=== PATIENT | female | born 1975 ===

== ENCOUNTER 2016-06-26 19:16 | Emergency (ER) | payer MEDICAID ==
[2016-06-26 19:36] VITALS: BP 106/73; TEMP 98.1
--- NOTE | 2016-06-26 20:09 | C.PDOC ---
History Of Present Illness 41 y/o female complaining of ringing in the left ear over the last few months, that subsided, and the returned over the last few days. Also complains of intermittent feelings of spinning sensation especially with head movements. No dizziness now, ear pain, URI complaints, weakness. No other complaints at this time. Time Seen by Provider: 06/26/16 19:58 Chief Complaint (Nursing): ENT Problem History Per: Patient History/Exam Limitations: no limitations Onset/Duration Of Symptoms: Days (3) Current Symptoms Are (Timing): Worse Severity: Mild Recent travel outside of the [place]: No Additional History Per: Patient Past Medical History Reviewed: Historical Data, Nursing Documentation, Vital Signs Vital Signs: Last Vital Signs Temp 98.1 F 06/26/16 19:34 Pulse 82 06/26/16 20:20 Resp 18 06/26/16 20:20 BP 106/73 06/26/16 19:34 Pulse Ox 100 06/27/16 01:18 - Medical History PMH: No Chronic Diseases Surgical History: Cholecystectomy Family History: States: Unknown Family Hx - Social History Hx Tobacco Use: No Hx Alcohol Use: No Hx Substance Use: No - Immunization History Hx Tetanus Toxoid Vaccination: Yes Hx Influenza Vaccination: Yes Hx Pneumococcal Vaccination: No Review Of Systems Except As Marked, All Systems Reviewed And Found Negative. ENT: Positive for: Other (tinnitus). Negative for: Ear Pain Neurological: Positive for: Dizziness. Negative for: Weakness, Numbness, Incoordination, Change in Speech, Confusion, Seizures, Altered Mental Status, Headache Physical Exam - Physical Exam Appears: Well, No Acute Distress Skin: Normal Color, Warm, Dry Eye(s): bilateral: Normal Inspection, PERRL, EOMI Nose: Normal Oral Mucosa: Moist Tongue: Normal Appearing Throat: Normal Neck: Normal Cardiovascular: Rhythm Regular Respiratory: Rhonchi, Wheezing (expiratory, mild) Extremity: Normal ROM Extremity: Bilateral: Atraumatic, Normal Color And Temperature Neurological/Psych: Oriented x3, Normal Speech, Normal Cognition, Normal Cranial Nerves, Normal Motor, Normal Sensation, Normal Reflexes, Other ( reproducable dizziness with head movement) Gait: Steady ED Course And Treatment O2 Sat by Pulse Oximetry: 100 (RA) Pulse Ox Interpretation: Normal Medical Decision Making Medical Decision Making: Initial Impression: Tinnitus v. Meniere's Disease Patient evaluated and has reproducible dizziness with head turning. She was given Meclizine in the department as well as a prescription for home. Medication instructions given. Patient to follow up with her PMD for further evaluation over the next few days. She was discharged in stable condition. Disposition Counseled Patient/Family Regarding: Diagnosis, Need For Followup, Rx Given - Disposition Referrals: James Oden MD [Staff Provider] - Disposition: HOME/ ROUTINE Disposition Time: 20:16 Condition: STABLE Additional Instructions: Please follow up with PMD and ENT Take meds as directed Return to ER if worse Prescriptions: Meclizine HCl 25 mg PO TID PRN #20 tablet PRN Reason: Dizziness Instructions: Vertigo (ED), Tinnitus (ED) - Clinical Impression Clinical Impression: Tinnitus, Vertigo - Scribe Statement The provider has reviewed the documentation as recorded by the Scribe Shameka Main
[2016-06-26 20:20] VITALS: PULSE 82; RESP 18
[2016-06-26 20:23] VITALS: O2SAT 100
== END 2016-06-26 20:25 | disposition home or self-care (01) ==
LOC: C.ER 19:16
DX: H93.12 Tinnitus, left ear (principal); R42 Dizziness and giddiness

== ENCOUNTER 2016-09-25 18:32 | Emergency (ER) | payer MEDICAID ==
[2016-09-25 18:51] VITALS: RESP 16; TEMP 98.4
--- NOTE | 2016-09-25 20:59 | CT ---
EXAM: CT Head Without Intravenous Contrast CLINICAL HISTORY: 41 years old, female; Signs and symptoms; Dizziness; Additional info: Headache, dizziness TECHNIQUE: Axial computed tomography images of the head/brain without intravenous contrast. This CT exam was performed using one or more of the following dose reduction techniques: automated exposure control, adjustment of the mA and/or kV according to patient size, and/or use of iterative reconstruction technique. EXAM DATE/TIME: 09/25/2016 7:35 PM COMPARISON: There are no prior studies for comparison. FINDINGS: Brain: Ventricles are normal in size and configuration. There is no midline shift. There are no intra-axial or extra-axial mass lesions or areas of hemorrhage. There are no abnormal fluid collections. [place]-white differentiation is maintained. Ventricles: See above. Bones: Cranial vault is intact. Soft tissues: unremarkable Sinuses: There is no acute sinusitis. Ears and mastoids: Middle ears and mastoids are unremarkable Orbits: Orbital contents are unremarkable. IMPRESSION: No acute intracranial abnormality
--- NOTE | 2016-09-25 21:02 | C.PDOC ---
History Of Present Illness A 41 y/o F c/o right sided headache that began this morning. States she had generalized headache earlier this morning after waking up, but now the pain is more localized to the right auricular area. Reports intermittently feeling tired and dizzy. Denies ear ache, photophobia, fever, URI symptoms, recent travel, sick contact, or any other complaints. Notes having a hx of headache that is relieved with Motrin, but ran out of Motrin and notes her headache feels different. Time Seen by Provider: 09/25/16 19:18 Chief Complaint (Nursing): Headache History Per: Patient History/Exam Limitations: no limitations Onset/Duration Of Symptoms: Hrs, Intermittent Episodes (Tiredness and dizziness) Current Symptoms Are (Timing): Still Present Severity: Mild Associated Symptoms: denies: Photophobia, Blurred Vision, Vomiting Recent travel outside of the [place]: No Additional History Per: Patient Past Medical History Reviewed: Historical Data, Nursing Documentation, Vital Signs Vital Signs: Last Vital Signs Temp 98.4 F 09/25/16 18:47 Pulse 78 09/25/16 21:58 Resp 16 09/25/16 21:58 BP 129/86 09/25/16 21:58 Pulse Ox 97 09/25/16 21:58 Surgical History: Cholecystectomy Family History: States: Unknown Family Hx - Social History Hx Tobacco Use: No Hx Alcohol Use: No Hx Substance Use: No - Immunization History Hx Tetanus Toxoid Vaccination: Yes Hx Influenza Vaccination: Yes Hx Pneumococcal Vaccination: No Review Of Systems Except As Marked, All Systems Reviewed And Found Negative. Constitutional: Positive for: Other (Intermittent tiredness). Negative for: Fever, Chills Eyes: Negative for: Other (Photophobia) ENT: Negative for: Ear Pain, Nose Congestion, Throat Pain Respiratory: Negative for: Cough Neurological: Positive for: Headache, Dizziness (Intermittent) Physical Exam - Physical Exam Appears: Non-toxic, No Acute Distress Skin: Warm, Dry Head: Atraumatic, Normacephalic Ear(s): Bilateral: Normal Oral Mucosa: Moist Throat: Normal, No Erythema, No Exudate, No Mass Neck: Supple Neurological/Psych: Oriented x3, Normal Speech, Normal Cognition, Normal Cranial Nerves, Other (No focal deficit) ED Course And Treatment O2 Sat by Pulse Oximetry: 98 (RA) Pulse Ox Interpretation: Normal - CT Scan/US Heead CT Other Rad Studies (CT/US): Interpreted By Me, Read By Radiologist CT/US Interpretation: No acute findings as interpreted by radiologist Progress Note: Impression: A 41 y/o F c/o right sided headache that began this morning. Plans: CT Head w/o, Motrin. Patient is in no acute distress at this time and is improving with the headache. Patient currently is afebrile and denies ear pain, photophobia, and URI symptoms. Patient advised to follow up with PMD within 1-2 days for further evaluation and to return to the ER if symptoms worsens. Disposition Counseled Patient/Family Regarding: Diagnosis, Need For Followup, Rx Given - Disposition Referrals: Kelsi Guerra [Staff Provider] - Disposition: HOME/ ROUTINE Disposition Time: 21:43 Condition: STABLE Additional Instructions: Please follow up with PMD Take motrin PO Increase PO fluids Return to ER if severe headache, dizziness, neck pain, fever or worse Prescriptions: Ibuprofen [Motrin] 600 mg PO Q6H #30 tab Instructions: Acute Headache (ED) Forms: [employer] (Kinyarwanda) Print Language: [place] - Clinical Impression Clinical Impression: Headache - Scribe Statement The provider has reviewed the documentation as recorded by the Scribe Marsha alfred All medical record entries made by the Eraibadalberto were at my direction and personally dictated by me. I have reviewed the chart and agree that the record accurately reflects my personal performance of the history, physical exam, medical decision making, and the department course for this patient. I have also personally directed, reviewed, and agree with the discharge instructions and disposition.
[2016-09-25 21:58] VITALS: BP 129/86; PULSE 78
[2016-09-26 03:19] VITALS: O2SAT 98
== END 2016-09-25 21:58 | disposition home or self-care (01) ==
LOC: C.ER 18:32
DX: R51 Headache (principal)

== ENCOUNTER 2017-05-25 16:48 | Emergency (ER) | payer MEDICAID ==
[2017-05-25 16:54] VITALS: TEMP 99.9; O2SAT 99
[2017-05-25] MEDS ORDERED: DiphenhydrAMINE 50 mg/ml Inj IM STA (17:10)
[2017-05-25] MEDS ORDERED: DiphenhydrAMINE 50 mg/ml Inj ONE (17:18)
[2017-05-25 17:31] VITALS: RESP 16
--- NOTE | 2017-05-25 18:29 | C.PDOC ---
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 denies: Dyspnea, Trouble Swallowing Home/EMS Treatment: Other (Claritin) Severity: Moderate Additional History Per: Prior Records Past Medical History Reviewed: Historical Data, Nursing Documentation, Vital Signs Vital Signs: Last Vital Signs Temp 99.9 F H 05/25/17 16:52 Pulse 93 H 05/25/17 17:29 Resp 16 05/25/17 17:29 BP 119/81 05/25/17 16:52 Pulse Ox 99 05/25/17 18:30 - Medical History Other PMH: Retinopathy Surgical History: Cholecystectomy Family History: States: Unknown Family Hx - Social History Hx Tobacco Use: No Hx Alcohol Use: No Hx Substance Use: No - Immunization History Hx Tetanus Toxoid Vaccination: Yes Hx Influenza Vaccination: Yes Hx Pneumococcal Vaccination: No Review Of Systems Except As Marked, All Systems Reviewed And Found Negative. Constitutional: Negative for: Fever Eyes: Negative for: Conjunctivae Inflammation, Eyelid Inflammation, Redness ENT: Negative for: Mouth Pain, Mouth Swelling, Throat Pain, Throat Swelling Respiratory: Negative for: Cough, Shortness of Breath, Wheezing Gastrointestinal: Negative for: Vomiting, Diarrhea Skin: Positive for: Rash Neurological: Negative for: Weakness, Numbness Physical Exam - Physical Exam Appears: Non-toxic, No Acute Distress Skin: Warm, Dry, Rash (Urticaria on face and upper extretmies) Head: Atraumatic Eye(s): bilateral: Normal Inspection, PERRL, EOMI Oral Mucosa: Moist, No Drooling, No Trismus Tongue: Normal Appearing Lips: Normal Appearing Throat: Normal Neck: Normal ROM, Supple Cardiovascular: Rhythm Regular Respiratory: Normal Breath Sounds, No Accessory Muscle Use, No Stridor, No Wheezing Gastrointestinal/Abdominal: Soft, No Tenderness Extremity: Normal ROM, No Pedal Edema Neurological/Psych: Oriented x3, Normal Speech, Normal Motor, Normal Sensation ED Course And Treatment O2 Sat by Pulse Oximetry: 99 Pulse Ox Interpretation: Normal Progress - Interventions Interventions:: Observation - Medications Administered Oral: H-2 edilma Intravenous: Antihistamine (H-1) (IM) - Data Reviewed Data Reviewed: Old records - Patient Status Patient status: Mostly improved - Continuity of Care Discussed patient case with:: Patient, Family-HIPPA compliant, ED Nurse - Patient Plan Patient Plan: Discharge, F/U with PCP Disposition Counseled Patient/Family Regarding: Studies Performed, Diagnosis, Need For Followup, Rx Given - Disposition Referrals: Kelsi Guerra [Staff Provider] - Disposition: HOME/ ROUTINE Disposition Time: 18:38 Condition: IMPROVED Additional Instructions: Follow up with your doctor for further evaluation and treatment. Avoid all seafood until you see an acute care clinical nurse specialist. Return to the ER if you develop trouble breathing, throat swelling, worsening of symptoms or if you have any other concerns. Prescriptions: DiphenhydrAMINE [Benadryl] 25 mg PO Q4 PRN #30 cap PRN Reason: Allergy Symptoms Instructions: Food Allergy (ED) Forms: [employer] (Khmer) Print Language: SINGAPOREAN - Clinical Impression Clinical Impression: Allergic reaction to food
[2017-05-25 19:00] VITALS: BP 92/53; PULSE 80
== END 2017-05-25 19:17 | disposition home or self-care (01) ==
LOC: C.ER 16:48
DX: T78.1XXA Other adverse food reactions, not elsewhere classified, initial encounter (principal); X58.XXXA Exposure to other specified factors, initial encounter
CPT/HCPCS: 96372; 99284; J1200

== ENCOUNTER 2017-06-21 21:05 | Emergency (ER) | payer MEDICAID ==
[2017-06-21 21:37] LABS: EOS # 0.1 K/uL (0.0-0.7); MEAN PLATELET VOLUME 7.6 fL (7.2-11.7); MONO # 0.6 K/uL (0.0-0.8)
[2017-06-21 21:42] LABS: BASO % 0.2 % (0.0-2.0); EOS % 0.9 % (0.0-4.0); HEMOGLOBIN 13.4 g/dL (11.0-16.0); LYMPH # 2.6 K/uL (1.0-4.3); LYMPH % 33.5 % (20.0-40.0); MEAN CELL VOLUME 86.8 fL (81.0-99.0); MEAN CORPUSCULAR HGB CONC 34.6 g/dL (33.0-37.0); MONO % 7.7 % (0.0-10.0); NEUT # 4.5 K/uL (1.8-7.0); NEUT % 57.7 % (50.0-75.0); RBC 4.47 Mil/uL (3.80-5.20); RED CELL DISTRIBUTION WIDTH 14.7 % (11.5-14.5); WHITE BLOOD COUNT 7.8 K/uL (4.8-10.8)
[2017-06-21 21:50] LABS: ALB/GLOB RATIO 1.3 (1.0-2.1); ALBUMIN 4.1 g/dL (3.5-5.0); ALT/SGPT 31 U/L (9-52); AST/SGOT 22 U/L (14-36); BLOOD UREA NITROGEN 12 mg/dL (7-17); CALCIUM 8.2 mg/dl (8.6-10.4); GFR AFRICAN-AMERICAN > 60; GFR NON-AFRICAN AMERICAN > 60
[2017-06-21 22:19] LABS: HCG,QUALITATIVE URINE NEGATIVE (NEGATIVE)
[2017-06-21 22:20] LABS: SQUAMOUS EPITHIAL < 1 /hpf (0-5); URINE BACTERIA FEW (<OCC); URINE BILIRUBIN NEGATIVE (NEGATIVE); URINE BLOOD 3+ (NEGATIVE); URINE CALCIUM OXALATE CRYSTALS FEW /hpf (<OCC); URINE CLARITY SL. HAZY (Clear); URINE COLOR Yellow (YELLOW); URINE GLUCOSE (UA) NORMAL (Normal); URINE LEUKOCYTE ESTERASE NEG Leu/uL (Negative); URINE PROTEIN NEGATIVE (NEGATIVE); URINE UROBILINOGEN NORMAL mg/dL (0.2-1.0)
[2017-06-21] MEDS ORDERED: Magnesium Citrate Oral SOL (300 ml) PO ONE (22:27)
--- NOTE | 2017-06-21 22:29 | C.PDOC ---
History Of Present Illness 42 y/o female presents to the ED with abdominal pain. Patient is complaining of abdominal cramping since 2:00 PM today after eating a meal consisting of pork and rice. She states the pain was gradual. Denies fever or chills. PMD: Mari Johnson Time Seen by Provider: 06/21/17 21:47 Chief Complaint (Nursing): Abdominal Pain History Per: Patient History/Exam Limitations: no limitations Onset/Duration Of Symptoms: Hrs (2:00 pm today) Current Symptoms Are (Timing): Still Present Associated Symptoms: denies: Fever, Chills Recent travel outside of the [place]: No Past Medical History Vital Signs: Last Vital Signs Temp 99.7 F H 06/21/17 21:09 Pulse 71 06/21/17 21:09 Resp 16 06/21/17 21:09 BP 120/72 06/21/17 21:09 Pulse Ox 100 06/21/17 23:02 - Medical History PMH: No Chronic Diseases Surgical History: Cholecystectomy Other Surgeries: Tubal ligation Family History: States: Unknown Family Hx - Social History Hx Tobacco Use: No Hx Alcohol Use: No Hx Substance Use: No - Immunization History Hx Tetanus Toxoid Vaccination: Yes Hx Influenza Vaccination: Yes Hx Pneumococcal Vaccination: No Review Of Systems Except As Marked, All Systems Reviewed And Found Negative. Constitutional: Negative for: Fever, Chills Gastrointestinal: Positive for: Abdominal Pain Physical Exam - Physical Exam Appears: In Acute Distress, Other (intermittent pain and sleep) Skin: Normal Color, Warm, Dry Head: Atraumatic, Normacephalic Eye(s): bilateral: Normal Inspection, PERRL, EOMI Nose: Normal Throat: Normal Neck: Normal Cardiovascular: Rhythm Regular Respiratory: Normal Breath Sounds Gastrointestinal/Abdominal: No Normal Exam (negative Schmitt's sign and McBurney' s point tenderness), Other (dull to progression in the right and left abdomen) Back: Normal Inspection, No CVA Tenderness, No Vertebral Tenderness Extremity: Normal ROM, No Pedal Edema Neurological/Psych: Oriented x3 ED Course And Treatment - Laboratory Results Result Diagrams: 06/21/17 21:34 06/21/17 21:34 Lab Interpretation: Normal (UA wnl (small blood from MP)) Urine POC: Negative O2 Sat by Pulse Oximetry: 100 (RA) Pulse Ox Interpretation: Normal - Radiology CXR: Interpreted by Me CXR Interpretation: Yes: No Acute Disease - Other Rad abd x 2 X-Ray: Interpreted by Me (+FOS, no obst) Reevaluation Time: 22:28 Reassessment Condition: Improved (pain free and sleep without any pain meds. ambulated to radiology without pain) Medical Decision Making Medical Decision Making: acute on chronic constip Disposition Doctor Will See Patient In The: Office Counseled Patient/Family Regarding: Studies Performed, Diagnosis - Disposition Referrals: Iain Guerra MD [Staff Provider] - Disposition: HOME/ ROUTINE Disposition Time: 23:02 Condition: GOOD Additional Instructions: mason un purgante (Citrato de Magnesio) ahora, y re-evalua méndez molestia del abdomen despues de usar el cyrus 2-3 veces Repita deana necessario Cambios de dieta y ejercisio Come 7 verduras y frutas crudas diarios mason mas agua camina 45 min x 5 taylor por semana- se aumenta la motilidad de los intestinos. Repita un purgante si las sintoma se re-occuran. Sigue con méndez Medico deana necessario. Instructions: Constipation, Adult (DC) Forms: [employer] (Citizen Of [place]) Print Language: CITIZEN OF [place] - Clinical Impression Clinical Impression: Colicky LLQ abdominal pain
[2017-06-21 22:33] LABS: BARBITURATES, UR NEGATIVE (NEGATIVE); BENZODIAZEPINES, UR NEGATIVE (NEGATIVE); OPIATES, UR NEGATIVE (NEGATIVE); PHENCYCLIDINE, UR NEGATIVE (NEGATIVE)
[2017-06-21] MEDS ORDERED: Magnesium Citrate Oral SOL (300 ml) ONE (22:33)
[2017-06-21 23:24] VITALS: BP 102/72; PULSE 76; RESP 18; TEMP 99.5
[2017-06-21 23:25] VITALS: O2SAT 100
--- NOTE | 2017-06-22 09:12 | RAD ---
PROCEDURE: Radiographs of the chest and abdomen (obstructive series) HISTORY: abd colic COMPARISON: No prior. TECHNIQUE: AP radiograph of the chest, with upright and supine radiographs of the abdomen. FINDINGS: CHEST: Lungs: Clear. Cardiovascular: Normal size heart. No pulmonary vascular congestion. Pleura: No pleural fluid. No pneumothorax. Other findings: None. ABDOMEN AND PELVIS: Bowel: Moderate amount of stool seen throughout the distal descending transverse and proximal descending colon consistent with constipation. . Free air: None. Bones: Unremarkable. Other findings: Metallic clips right upper quadrant of the abdomen consistent with prior cholecystectomy. IMPRESSION: Unremarkable radiographs of chest and abdomen. No evidence of mechanical bowel obstruction. Constipation. Cholecystectomy changes.
== END 2017-06-21 23:26 | disposition home or self-care (01) ==
LOC: C.ER 21:05
DX: R10.32 Left lower quadrant pain (principal)
CPT/HCPCS: 74022; 80053; 80320; 80324; 80345; 80346; 80349; 80353; 80358; 80361; 81001; 83992; 84703; 85025; 96374; 99285; J2405

== ENCOUNTER 2017-09-30 19:48 | Emergency (ER) | payer MEDICAID ==
[2017-09-30 19:56] VITALS: TEMP 98.6; O2SAT 98
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
[2017-09-30 20:45] VITALS: BP 129/85; PULSE 78; RESP 16
--- NOTE | 2017-10-01 10:43 | RAD ---
Date of service: 09/30/2017 PROCEDURE: Left Foot Radiographs. HISTORY: pain to 5th metatarsal COMPARISON: None. FINDINGS: BONES: Bone alignment and mineralization are normal. There is no acute displaced fracture or bone destruction. JOINTS: Normal. SOFT TISSUES: Normal. OTHER FINDINGS: None. IMPRESSION: No acute fracture or dislocation.
== END 2017-09-30 20:44 | disposition home or self-care (01) ==
LOC: C.ER 19:48
DX: S90.32XA Contusion of left foot, initial encounter (principal); V49.50XA Passenger injured in collision with unspecified motor vehicles in traffic accident, initial encounter

== ENCOUNTER 2018-03-29 13:21 | Emergency (ER) | payer MEDICAID ==
[2018-03-29 13:31] VITALS: BP 124/76; PULSE 108; RESP 18; TEMP 100.1; O2SAT 99
--- NOTE | 2018-03-29 13:53 | C.PDOC ---
History Of Present Illness 43 y/o female, otherwise well and has no medical problems, comes in to ED complaining of a sore throat, general body aches, and chills for the past 2 days, associated with cough. Patient states she got a flu shot last week. Denies any fever, nausea, vomiting, SOB, or other symptoms. Patient is currently afebrile here in the ER. HPI: Influenza Time Seen by Provider: 03/29/18 13:45 Chief Complaint: Cough, Cold, Congestion History Per: Patient Exam Limitations: no limitations Onset/Duration Of Symptoms: Days Symptoms include: bodyaches, sore throat, cough. denies: fever, vomiting, chest pain, difficulty breathing Hx Influenza Vaccination: Yes Past Medical History Reviewed: Historical Data, Nursing Documentation, Vital Signs Vital Signs: Last Vital Signs Temp 100.1 F H 03/29/18 13:25 Pulse 108 H 03/29/18 13:25 Resp 18 03/29/18 13:25 BP 124/76 03/29/18 13:25 Pulse Ox 99 03/29/18 13:25 Surgical History: Cholecystectomy Family History: States: No Known Family Hx - Social History Hx Tobacco Use: No Hx Alcohol Use: No Hx Substance Use: No - Immunization History Hx Tetanus Toxoid Vaccination: Yes Hx Influenza Vaccination: Yes Hx Pneumococcal Vaccination: No Review Of Systems Except As Marked, All Systems Reviewed And Found Negative. Constitutional: Positive for: Chills, Other (Bodyaches). Negative for: Fever ENT: Positive for: Throat Pain (Sore throat) Cardiovascular: Negative for: Chest Pain Respiratory: Positive for: Cough. Negative for: Shortness of Breath Gastrointestinal: Negative for: Nausea, Vomiting Physical Exam - Physical Exam Appears: Non-toxic, No Acute Distress Skin: Warm, Dry Head: Atraumatic, Normacephalic Eye(s): bilateral: Normal Inspection Oral Mucosa: Moist Throat: Normal, No Erythema, No Exudate Cardiovascular: Rhythm Regular, No Murmur Respiratory: Normal Breath Sounds, No Rales, No Rhonchi, No Wheezing Gastrointestinal/Abdominal: Soft, No Tenderness Extremity: Bilateral: Atraumatic, Normal Color And Temperature, Normal ROM Neurological/Psych: Oriented x3, Normal Speech Medical Decision Making Medical Decision Making: Plan: --Tamiflu PO Patient is currently afebrile and is in no acute distress. Patient will be discharged home with tamiflu and motrin. - ECG O2 Sat by Pulse Oximetry: 99 (RA) Pulse Ox Interpretation: Normal Disposition Counseled Patient/Family Regarding: Diagnosis, Need For Followup, Rx Given - Disposition Disposition: HOME/ ROUTINE Disposition Time: 13:52 Condition: STABLE Prescriptions: Ibuprofen [Motrin] 600 mg PO TID #15 tab Oseltamivir Cap [Tamiflu] 1 cap PO BID #10 cap Instructions: Influenza (ED) Forms: [employer] ([place]ian), Work Excuse - POA Present On Arrival: None - Clinical Impression Clinical Impression: Influenza-like illness - Scribe Statement The provider has reviewed the documentation as recorded by the Juhi Mackenzie Provider Attestation: All medical record entries made by the Eraibadalberto were at my direction and personally dictated by me. I have reviewed the chart and agree that the record accurately reflects my personal performance of the history, physical exam, medical decision making, and the department course for this patient. I have also personally directed, reviewed, and agree with the discharge instructions and disposition.
== END 2018-03-29 14:05 | disposition home or self-care (01) ==
LOC: C.ER 13:21
DX: J11.1 Influenza due to unidentified influenza virus with other respiratory manifestations (principal)